=== PATIENT | female | born 1940 | race Caucasian/White ===

== ENCOUNTER 2017-09-21 21:26 | Inpatient (IN) ==
[2017-09-21] MEDS ORDERED: ASPIRIN 325 MG TABLET PO STA (21:40)
[2017-09-21] MEDS ORDERED: METOPROLOL TARTRATE 25 MG TABLET PO STA (21:40)
[2017-09-21] MEDS ORDERED: NITROGLYCERIN 2% OINT 1 INCH/GM PACK TOP STA (21:40)
[2017-09-21] MEDS ORDERED: ENOXAPARIN 100 MG/ML SYRINGE SUBCUT STA (21:40)
[2017-09-21] MEDS ORDERED: NITROGLYCERIN 2% OINT 1 INCH/GM PACK TOP ONE (22:03)
[2017-09-21] MEDS ORDERED: ENOXAPARIN 80 MG/0.8 ML SYRINGE SUBCUT ONE (22:03)
[2017-09-21] MEDS ORDERED: METOPROLOL TARTRATE 25 MG TABLET ONE (22:03)
[2017-09-21] MEDS ORDERED: ASPIRIN 325 MG TABLET ONE (22:04)
[2017-09-21] MEDS ORDERED: DEXTROSE 50% 25 GM/50 ML VIAL IV PRN (23:09)
[2017-09-21] MEDS ORDERED: ACETAMINOPHEN 325 MG TABLET PO PRN (23:09)
[2017-09-21] MEDS ORDERED: GLUCAGON 1 MG VIAL IM PRN (23:09)
[2017-09-22] MEDS ORDERED: METOPROLOL TARTRATE 25 MG TABLET PO ONE (00:40)
[2017-09-22 00:46] LABS: Basophils # 0.1 10*3/uL (0.0-0.2); Basophils % 0.4 % (0.0-0.8); Eosinophils # 0.2 10*3/uL (0.0-0.87); Eosinophils % 1.4 % (0.00-10.9); Hematocrit 37.3 VOL% (35.7-47.0); Hemoglobin 12.5 GM/DL (12.0-16.0); Immature Granulocytes % 0.5 %; Immature Granulocytes Absolute 0.06 #; Lymphocytes # 1.9 10*3/uL (1.4-4.0); Lymphocytes % 16.2 % (21.3-54.2); Mean Corpuscular HGB Conc 33.5 GM/DL (32-36); Mean Corpuscular Hemoglobin 29 PG (27-34); Mean Platelet Volume 10.4 FL (9.6-12.0); Monocytes # 0.8 10*3/uL (0.11-0.8); Monocytes % 6.5 % (1.7-12.7); Neutrophils # 8.9 10*3/uL (1.4-7.4); Platelet Count 323 T/CUMM (130-400); Red Blood Count 4.39 MC/CUMM (3.8-5.5); Red Cell Distribution Width 12.5 % (9.3-17.3); White Blood Count 11.9 T/CUMM (4-12)
[2017-09-22] MEDS: ATORVASTATIN 40 MG TABLET PO SCH ×2 (00:54→21:45)
[2017-09-22] MEDS: SODIUM CHLORIDE 0.9% 1,000 ML IV SCH ×2 (00:58→09:28)
[2017-09-22] MEDS: NITROGLYCERIN 2% OINT 1 INCH/GM PACK TOP SCH ×4 (01:04→17:37)
[2017-09-22 01:17] LABS: Alanine Aminotransferase 21 U/L (13-56); Albumin 3.6 G/DL (3.4-5.0); Alkaline Phosphatase 126 U/L (45-117); Aspartate Amino Transferase 26 U/L (0-37); Bilirubin,Total < 0.39 MG/DL (0.2-1.0); Blood Urea Nitrogen 17 MG/DL (7-18); Calcium 8.9 MG/DL (8.5-10.1); Cholesterol 189 MG/DL (50-200); Glucose 98 MG/DL (74-106); HDL Cholesterol 51 MG/DL (40-60); Magnesium 1.7 MG/DL (1.8-2.4); Osmolality,Calculated 278.5 MOS/KG (273-304); Potassium 4.2 MMOL/L (3.5-5.1); Risk Ratio 3.71; Sodium 139 MMOL/L (136-145); Total Protein 6.6 G/DL (6.4-8.3); Triglycerides 104 MG/DL (2-150); VLDL CHOLESTEROL 20.8 MG/DL
[2017-09-22] MEDS: INSULIN REGULAR 100 UNIT/ML SUBCUT SCH ×4 (07:31→21:42)
[2017-09-22] MEDS ORDERED: DIAZEPAM 5 MG TABLET PO ONE (08:41)
[2017-09-22] MEDS ORDERED: POTASSIUM CHLORIDE RIDER 10 MEQ in PREMIX 1 EACH IV PRN (08:41)
[2017-09-22] MEDS ORDERED: MAGNESIUM SULF RIDER 2 GM in PREMIX 1 EACH IV PRN (08:41)
[2017-09-22] MEDS ORDERED: diphenhydrAMINE CAP 25 MG CAPSULE PO ONE (08:41)
[2017-09-22] MEDS ORDERED: METOPROLOL TARTRATE 25 MG TABLET PO SCH (09:00)
[2017-09-22] MEDS ORDERED: ENOXAPARIN 80 MG/0.8 ML SYRINGE SUBCUT SCH (09:00)
[2017-09-22] MEDS: ASPIRIN EC 325 MG TABLET PO SCH (09:32)
[2017-09-22] MEDS: PANTOPRAZOLE 40 MG TABLET PO SCH (09:32)
[2017-09-22] MEDS: DOCUSATE SODIUM 100 MG CAPSULE PO SCH ×2 (09:32→21:45)
[2017-09-22] MEDS: METOPROLOL TARTRATE 50 MG TABLET PO SCH ×2 (09:32→21:45)
[2017-09-22 09:44] LABS: PT Patient Result 10.5 SECS
[2017-09-22 11:05] LABS: Apearance,Urine CLEAR (Clear); Bacteria,Urine Occasional /HPF (Few); Bilirubin,Urine Negative (Negative); Blood, Urine Small mg/dL (Negative); Glucose,Urine (UA) 50 mg/dL (Negative); Ketones,Urine Negative (Negative); Nitrite,Urine Negative (Negative); Protein,Urine Negative; RBC,Urine 2 /HPF (0-4); Squamous Epithelial Cell,Urine Occasional /HPF (0-10); Urine Color Straw (Yellow); Urine Specific Gravity 1.005 (1.001-1.035); Urine Urobilinogen < 2.0 EU/DL (0.2-1.0); WBC,Urine 12 /HPF (0-6)
[2017-09-22] MEDS ORDERED: LIDOCAINE 1% 20 ML VIAL ONE (14:09)
[2017-09-22] MEDS ORDERED: MIDAZOLAM 2 MG/2 ML VIAL ONE (14:40)
[2017-09-22] MEDS ORDERED: fentaNYL 100 MCG/2 ML VIAL ONE (14:41)
[2017-09-22] MEDS ORDERED: SODIUM CHLORIDE 0.9% 1,000 ML IV SCH (16:00)
[2017-09-23] MEDS: NITROGLYCERIN 2% OINT 1 INCH/GM PACK TOP SCH ×4 (03:27→17:41)
[2017-09-23 06:20] LABS: Basophils # 0.1 10*3/uL (0.0-0.2); Basophils % 0.7 % (0.0-0.8); Eosinophils # 0.6 10*3/uL (0.0-0.87); Eosinophils % 7.9 % (0.00-10.9); Hematocrit 36.1 VOL% (35.7-47.0); Hemoglobin 11.9 GM/DL (12.0-16.0); Immature Granulocytes % 0.2 %; Immature Granulocytes Absolute 0.02 #; Lymphocytes # 2.2 10*3/uL (1.4-4.0); Lymphocytes % 26.4 % (21.3-54.2); Mean Corpuscular Hemoglobin 28 PG (27-34); Mean Corpuscular Volume 85.7 FL (87-102); Mean Platelet Volume 11.4 FL (9.6-12.0); Monocytes # 0.9 10*3/uL (0.11-0.8); Monocytes % 10.7 % (1.7-12.7); Neutrophils # 4.4 10*3/uL (1.4-7.4); Neutrophils % 54.1 % (38.7-73.9); Platelet Count 288 T/CUMM (130-400); Red Blood Count 4.21 MC/CUMM (3.8-5.5); Red Cell Distribution Width 12.7 % (9.3-17.3); White Blood Count 8.2 T/CUMM (4-12)
[2017-09-23 07:05] LABS: CKMB % 2.2 %; Calcium 8.6 MG/DL (8.5-10.1); Osmolality,Calculated 277.5 MOS/KG (273-304); Troponin I Only 3.58 NG/ML (0.00-0.045)
[2017-09-23] MEDS ORDERED: DOCUSATE SODIUM 100 MG CAPSULE PO PRN (08:25)
[2017-09-23] MEDS ORDERED: INSULIN LISPRO PROTAMINE/LISPRO 75/25 100 UNIT/ML SUBCUT SCH (09:00)
[2017-09-23] MEDS: ONDANSETRON 4 MG/2 ML VIAL IV PRN (09:29)
[2017-09-23] MEDS: PANTOPRAZOLE 40 MG TABLET PO SCH ×2 (09:59→10:22)
[2017-09-23] MEDS: DOCUSATE SODIUM 100 MG CAPSULE PO SCH ×2 (10:21→20:53)
[2017-09-23] MEDS: METOPROLOL TARTRATE 50 MG TABLET PO SCH ×2 (10:21→20:53)
[2017-09-23] MEDS: ENALAPRIL 10 MG TABLET PO SCH ×2 (10:21→20:53)
[2017-09-23] MEDS: hydroCHLOROthiazide 25 MG TABLET PO SCH (10:21)
[2017-09-23] MEDS: LORATADINE 10 MG TABLET PO SCH (10:21)
[2017-09-23] MEDS: ENOXAPARIN 40 MG/0.4 ML SYRINGE SUBCUT SCH (10:22)
[2017-09-23] MEDS: busPIRone 15 MG TABLET PO SCH ×2 (10:22→20:53)
[2017-09-23] MEDS: ASPIRIN EC 325 MG TABLET PO SCH (10:22)
[2017-09-23] MEDS: INSULIN REGULAR 100 UNIT/ML SUBCUT SCH ×4 (10:40→20:53)
[2017-09-23] MEDS: FUROSEMIDE 20 MG TABLET PO SCH (10:41)
[2017-09-23] MEDS: POTASSIUM CHLORIDE 8 MEQ CAPSULE PO SCH (10:41)
[2017-09-23] MEDS ORDERED: SIMVASTATIN 20 MG TABLET PO SCH (19:00)
[2017-09-23] MEDS: AMITRIPTYLINE 25 MG TABLET PO SCH (20:53)
[2017-09-23] MEDS: ATORVASTATIN 40 MG TABLET PO SCH (20:53)
[2017-09-24] MEDS: NITROGLYCERIN 2% OINT 1 INCH/GM PACK TOP SCH ×4 (00:45→18:20)
[2017-09-24 04:54] LABS: Basophils # 0.1 10*3/uL (0.0-0.2); Basophils % 0.6 % (0.0-0.8); Eosinophils # 0.9 10*3/uL (0.0-0.87); Eosinophils % 10.2 % (0.00-10.9); Hematocrit 35.2 VOL% (35.7-47.0); Hemoglobin 11.7 GM/DL (12.0-16.0); Immature Granulocytes % 0.2 %; Immature Granulocytes Absolute 0.02 #; Lymphocytes # 2.3 10*3/uL (1.4-4.0); Mean Corpuscular HGB Conc 33.2 GM/DL (32-36); Mean Corpuscular Hemoglobin 28 PG (27-34); Mean Platelet Volume 10.6 FL (9.6-12.0); Neutrophils # 4.1 10*3/uL (1.4-7.4); Platelet Count 293 T/CUMM (130-400); Red Blood Count 4.14 MC/CUMM (3.8-5.5); Red Cell Distribution Width 12.7 % (9.3-17.3); White Blood Count 8.3 T/CUMM (4-12)
[2017-09-24 05:15] LABS: Calcium 8.8 MG/DL (8.5-10.1); Magnesium 1.8 MG/DL (1.8-2.4); Potassium 4.8 MMOL/L (3.5-5.1)
[2017-09-24] MEDS: METOPROLOL TARTRATE 50 MG TABLET PO SCH ×2 (10:53→21:44)
[2017-09-24] MEDS: hydroCHLOROthiazide 25 MG TABLET PO SCH (10:53)
[2017-09-24] MEDS: LORATADINE 10 MG TABLET PO SCH (10:53)
[2017-09-24] MEDS: ENALAPRIL 10 MG TABLET PO SCH ×2 (10:53→21:45)
[2017-09-24] MEDS: FUROSEMIDE 20 MG TABLET PO SCH (10:54)
[2017-09-24] MEDS: ASPIRIN EC 325 MG TABLET PO SCH (10:54)
[2017-09-24] MEDS: busPIRone 15 MG TABLET PO SCH ×2 (10:54→21:43)
[2017-09-24] MEDS: PANTOPRAZOLE 40 MG TABLET PO SCH (10:55)
[2017-09-24] MEDS: ENOXAPARIN 40 MG/0.4 ML SYRINGE SUBCUT SCH (10:55)
[2017-09-24] MEDS: INSULIN REGULAR 100 UNIT/ML SUBCUT SCH ×4 (10:56→21:43)
[2017-09-24] MEDS: POTASSIUM CHLORIDE 8 MEQ CAPSULE PO SCH (10:57)
[2017-09-24] MEDS: DOCUSATE SODIUM 100 MG CAPSULE PO SCH ×2 (10:57→21:44)
[2017-09-24] MEDS: ATORVASTATIN 40 MG TABLET PO SCH (21:44)
[2017-09-24] MEDS: AMITRIPTYLINE 25 MG TABLET PO SCH (21:45)
[2017-09-25] MEDS: NITROGLYCERIN 2% OINT 1 INCH/GM PACK TOP SCH ×4 (00:07→17:54)
[2017-09-25 02:24] LABS: Basophils # 0.1 10*3/uL (0.0-0.2); Basophils % 0.7 % (0.0-0.8); Eosinophils # 0.8 10*3/uL (0.0-0.87); Eosinophils % 9.6 % (0.00-10.9); Hematocrit 35.5 VOL% (35.7-47.0); Hemoglobin 12.1 GM/DL (12.0-16.0); Immature Granulocytes % 0.5 %; Immature Granulocytes Absolute 0.04 #; Lymphocytes # 2.5 10*3/uL (1.4-4.0); Lymphocytes % 28.6 % (21.3-54.2); Mean Corpuscular HGB Conc 34.1 GM/DL (32-36); Mean Corpuscular Hemoglobin 29 PG (27-34); Mean Corpuscular Volume 83.9 FL (87-102); Mean Platelet Volume 11.3 FL (9.6-12.0); Monocytes % 11.4 % (1.7-12.7); Neutrophils # 4.3 10*3/uL (1.4-7.4); Neutrophils % 49.2 % (38.7-73.9); Platelet Count 292 T/CUMM (130-400); Red Blood Count 4.23 MC/CUMM (3.8-5.5); Red Cell Distribution Width 12.5 % (9.3-17.3); White Blood Count 8.8 T/CUMM (4-12)
[2017-09-25 02:57] LABS: Calcium 9.1 MG/DL (8.5-10.1); Magnesium 1.8 MG/DL (1.8-2.4); Potassium 4.4 MMOL/L (3.5-5.1)
[2017-09-25] MEDS: ASPIRIN EC 325 MG TABLET PO SCH (09:25)
[2017-09-25] MEDS: LORATADINE 10 MG TABLET PO SCH (09:25)
[2017-09-25] MEDS: PANTOPRAZOLE 40 MG TABLET PO SCH (09:26)
[2017-09-25] MEDS: FUROSEMIDE 20 MG TABLET PO SCH (09:26)
[2017-09-25] MEDS: DOCUSATE SODIUM 100 MG CAPSULE PO SCH ×2 (09:26→21:19)
[2017-09-25] MEDS: METOPROLOL TARTRATE 50 MG TABLET PO SCH ×2 (09:26→21:19)
[2017-09-25] MEDS: busPIRone 15 MG TABLET PO SCH ×2 (09:27→21:19)
[2017-09-25] MEDS: ENALAPRIL 10 MG TABLET PO SCH ×2 (09:27→21:19)
[2017-09-25] MEDS: hydroCHLOROthiazide 25 MG TABLET PO SCH (09:27)
[2017-09-25] MEDS: ENOXAPARIN 40 MG/0.4 ML SYRINGE SUBCUT SCH (09:28)
[2017-09-25] MEDS: POTASSIUM CHLORIDE 8 MEQ CAPSULE PO SCH (09:31)
[2017-09-25] MEDS: INSULIN REGULAR 100 UNIT/ML SUBCUT SCH ×4 (13:21→21:20)
[2017-09-25] MEDS ORDERED: hydrALAZINE 20 MG/1 ML VIAL IV PRN (17:12)
[2017-09-25] MEDS: AMITRIPTYLINE 25 MG TABLET PO SCH (21:19)
[2017-09-25] MEDS: ATORVASTATIN 40 MG TABLET PO SCH (21:19)
[2017-09-26] MEDS: NITROGLYCERIN 2% OINT 1 INCH/GM PACK TOP SCH ×3 (00:04→13:02)
[2017-09-26 04:30] LABS: Basophils # 0.1 10*3/uL (0.0-0.2); Basophils % 0.6 % (0.0-0.8); Eosinophils # 0.9 10*3/uL (0.0-0.87); Eosinophils % 9.9 % (0.00-10.9); Hematocrit 35.9 VOL% (35.7-47.0); Hemoglobin 12.1 GM/DL (12.0-16.0); Immature Granulocytes % 0.3 %; Immature Granulocytes Absolute 0.03 #; Mean Corpuscular HGB Conc 33.7 GM/DL (32-36); Mean Corpuscular Hemoglobin 28 PG (27-34); Mean Corpuscular Volume 83.7 FL (87-102); Mean Platelet Volume 11.7 FL (9.6-12.0); Monocytes % 11.5 % (1.7-12.7); Neutrophils % 55.7 % (38.7-73.9); Platelet Count 277 T/CUMM (130-400); Red Blood Count 4.29 MC/CUMM (3.8-5.5); Red Cell Distribution Width 12.7 % (9.3-17.3); White Blood Count 8.9 T/CUMM (4-12)
[2017-09-26 05:02] LABS: Calcium 9.3 MG/DL (8.5-10.1); Magnesium 1.8 MG/DL (1.8-2.4); Potassium 4.7 MMOL/L (3.5-5.1)
[2017-09-26] MEDS: INSULIN REGULAR 100 UNIT/ML SUBCUT SCH ×4 (10:27→21:13)
[2017-09-26] MEDS: PANTOPRAZOLE 40 MG TABLET PO SCH (10:33)
[2017-09-26] MEDS: LORATADINE 10 MG TABLET PO SCH (10:33)
[2017-09-26] MEDS: ENALAPRIL 10 MG TABLET PO SCH ×2 (10:34→21:13)
[2017-09-26] MEDS: DOCUSATE SODIUM 100 MG CAPSULE PO SCH ×2 (10:34→21:12)
[2017-09-26] MEDS: ASPIRIN EC 325 MG TABLET PO SCH (10:34)
[2017-09-26] MEDS: hydroCHLOROthiazide 25 MG TABLET PO SCH (10:35)
[2017-09-26] MEDS: METOPROLOL TARTRATE 50 MG TABLET PO SCH ×2 (10:35→21:13)
[2017-09-26] MEDS: FUROSEMIDE 20 MG TABLET PO SCH (10:35)
[2017-09-26] MEDS: POTASSIUM CHLORIDE 8 MEQ CAPSULE PO SCH (10:35)
[2017-09-26] MEDS: busPIRone 15 MG TABLET PO SCH ×2 (10:36→21:13)
[2017-09-26] MEDS: ENOXAPARIN 40 MG/0.4 ML SYRINGE SUBCUT SCH (10:40)
[2017-09-26] MEDS: ATORVASTATIN 40 MG TABLET PO SCH (21:12)
[2017-09-26] MEDS: AMITRIPTYLINE 25 MG TABLET PO SCH (21:13)
[2017-09-27 01:36] LABS: Basophils # 0.1 10*3/uL (0.0-0.2); Basophils % 0.7 % (0.0-0.8); Eosinophils # 0.7 10*3/uL (0.0-0.87); Eosinophils % 8.5 % (0.00-10.9); Hematocrit 35.4 VOL% (35.7-47.0); Immature Granulocytes % 0.2 %; Immature Granulocytes Absolute 0.02 #; Lymphocytes # 2.1 10*3/uL (1.4-4.0); Lymphocytes % 24.4 % (21.3-54.2); Mean Corpuscular HGB Conc 33.9 GM/DL (32-36); Mean Corpuscular Hemoglobin 29 PG (27-34); Mean Corpuscular Volume 84.3 FL (87-102); Mean Platelet Volume 11.3 FL (9.6-12.0); Monocytes # 1.1 10*3/uL (0.11-0.8); Monocytes % 12.6 % (1.7-12.7); Neutrophils # 4.6 10*3/uL (1.4-7.4); Neutrophils % 53.6 % (38.7-73.9); Platelet Count 291 T/CUMM (130-400); Red Cell Distribution Width 12.7 % (9.3-17.3); White Blood Count 8.6 T/CUMM (4-12)
[2017-09-27 09:53] LABS: Calcium 9.2 MG/DL (8.5-10.1); Magnesium 1.8 MG/DL (1.8-2.4); Osmolality,Calculated 282.4 MOS/KG (273-304); Potassium 4.9 MMOL/L (3.5-5.1)
[2017-09-27] MEDS: INSULIN REGULAR 100 UNIT/ML SUBCUT SCH ×4 (10:15→21:33)
[2017-09-27] MEDS: ENOXAPARIN 40 MG/0.4 ML SYRINGE SUBCUT SCH (11:22)
[2017-09-27] MEDS: DOCUSATE SODIUM 100 MG CAPSULE PO SCH ×2 (11:22→21:33)
[2017-09-27] MEDS: LORATADINE 10 MG TABLET PO SCH (11:22)
[2017-09-27] MEDS: busPIRone 15 MG TABLET PO SCH ×2 (11:24→21:33)
[2017-09-27] MEDS: ASPIRIN EC 325 MG TABLET PO SCH (11:25)
[2017-09-27] MEDS: POTASSIUM CHLORIDE 8 MEQ CAPSULE PO SCH (11:25)
[2017-09-27] MEDS: hydroCHLOROthiazide 25 MG TABLET PO SCH (11:25)
[2017-09-27] MEDS: METOPROLOL TARTRATE 50 MG TABLET PO SCH ×2 (11:25→21:33)
[2017-09-27] MEDS: PANTOPRAZOLE 40 MG TABLET PO SCH (11:25)
[2017-09-27] MEDS: FUROSEMIDE 20 MG TABLET PO SCH (11:25)
[2017-09-27] MEDS: ENALAPRIL 10 MG TABLET PO SCH ×2 (11:25→21:33)
[2017-09-27] MEDS ORDERED: POTASSIUM CHLORIDE RIDER 10 MEQ in PREMIX 1 EACH IV PRN ×2 (13:53→18:53)
[2017-09-27] MEDS ORDERED: MAGNESIUM SULF RIDER 2 GM in PREMIX 1 EACH IV PRN ×2 (13:53→18:53)
[2017-09-27] MEDS: ATORVASTATIN 40 MG TABLET PO SCH (21:33)
[2017-09-27] MEDS: AMITRIPTYLINE 25 MG TABLET PO SCH (21:33)
[2017-09-28 04:51] LABS: Basophils # 0.1 10*3/uL (0.0-0.2); Basophils % 0.9 % (0.0-0.8); Eosinophils # 0.8 10*3/uL (0.0-0.87); Eosinophils % 9.4 % (0.00-10.9); Hematocrit 35.1 VOL% (35.7-47.0); Hemoglobin 12.1 GM/DL (12.0-16.0); Immature Granulocytes % 0.3 %; Immature Granulocytes Absolute 0.02 #; Lymphocytes # 2.1 10*3/uL (1.4-4.0); Lymphocytes % 26.3 % (21.3-54.2); Mean Corpuscular HGB Conc 34.5 GM/DL (32-36); Mean Corpuscular Hemoglobin 29 PG (27-34); Mean Corpuscular Volume 83.6 FL (87-102); Mean Platelet Volume 11.5 FL (9.6-12.0); Monocytes % 11.9 % (1.7-12.7); Neutrophils # 4.1 10*3/uL (1.4-7.4); Neutrophils % 51.2 % (38.7-73.9); Platelet Count 266 T/CUMM (130-400); Red Cell Distribution Width 12.7 % (9.3-17.3)
[2017-09-28] MEDS: SODIUM CHLORIDE 0.45% 1,000 ML IV SCH ×4 (05:01→23:58)
[2017-09-28 05:22] LABS: Calcium 9.2 MG/DL (8.5-10.1); Magnesium 1.7 MG/DL (1.8-2.4); Osmolality,Calculated 278.5 MOS/KG (273-304); Potassium 4.6 MMOL/L (3.5-5.1)
[2017-09-28] MEDS ORDERED: SODIUM CHLORIDE 0.45% 1,000 ML IV SCH (09:00)
[2017-09-28] MEDS: ENALAPRIL 10 MG TABLET PO SCH ×2 (09:09→22:34)
[2017-09-28] MEDS: busPIRone 15 MG TABLET PO SCH ×2 (09:10→22:27)
[2017-09-28] MEDS: POTASSIUM CHLORIDE 8 MEQ CAPSULE PO SCH (09:10)
[2017-09-28] MEDS: ASPIRIN EC 325 MG TABLET PO SCH (09:11)
[2017-09-28] MEDS: LORATADINE 10 MG TABLET PO SCH (09:11)
[2017-09-28] MEDS: METOPROLOL TARTRATE 50 MG TABLET PO SCH ×2 (09:11→22:27)
[2017-09-28] MEDS: PANTOPRAZOLE 40 MG TABLET PO SCH (09:12)
[2017-09-28] MEDS: ENOXAPARIN 40 MG/0.4 ML SYRINGE SUBCUT SCH (09:13)
[2017-09-28] MEDS: DOCUSATE SODIUM 100 MG CAPSULE PO SCH ×2 (09:13→22:28)
[2017-09-28] MEDS: INSULIN REGULAR 100 UNIT/ML SUBCUT SCH ×4 (09:14→22:27)
[2017-09-28] MEDS ORDERED: DIAZEPAM 5 MG TABLET PO ONE (10:00)
[2017-09-28] MEDS ORDERED: diphenhydrAMINE CAP 25 MG CAPSULE PO ONE (10:00)
[2017-09-28] MEDS ORDERED: HYDROmorphone 2 MG/1 ML VIAL ONE (10:50)
[2017-09-28] MEDS ORDERED: MIDAZOLAM 2 MG/2 ML VIAL ONE (10:50)
[2017-09-28] MEDS ORDERED: HEPARIN/NACL 0.9% 2 UNITS/ML 1,000 ML IV ONE (11:48)
[2017-09-28] MEDS ORDERED: LIDOCAINE 1% 20 ML VIAL ONE (11:48)
[2017-09-28] MEDS ORDERED: HEPARIN/NACL 0.9% 2 UNITS/ML 500 ML IV ONE (12:15)
[2017-09-28] MEDS ORDERED: TICAGRELOR 90 MG TABLET ONE (12:34)
[2017-09-28] MEDS ORDERED: NITROGLYCERIN SL 0.4 MG TABLET SL PRN (13:01)
[2017-09-28] MEDS ORDERED: DEXTROSE 50% 25 GM/50 ML VIAL IV PRN (13:01)
[2017-09-28] MEDS ORDERED: ZALEPLON 5 MG CAPSULE PO PRN (13:01)
[2017-09-28] MEDS ORDERED: GLUCAGON 1 MG VIAL IM PRN (13:01)
[2017-09-28] MEDS ORDERED: HYDROmorphone 2 MG/1 ML VIAL IV ONE (14:14)
[2017-09-28] MEDS: hydroCHLOROthiazide 25 MG TABLET PO SCH (14:18)
[2017-09-28] MEDS: FUROSEMIDE 20 MG TABLET PO SCH (14:18)
[2017-09-28] MEDS: NITROGLYCERIN DRIP 50 MG/250 ML BOTTLE IV SCH (14:19)
[2017-09-28 18:49] LABS: Apearance,Urine CLEAR (Clear); Bilirubin,Urine Negative (Negative); Blood, Urine Negative (Negative); Glucose,Urine (UA) Negative (Negative); Ketones,Urine Negative (Negative); Nitrite,Urine Negative (Negative); Protein,Urine Negative; RBC,Urine <1 /HPF (0-4); Squamous Epithelial Cell,Urine Occasional /HPF (0-10); Urine Color Yellow (Yellow); Urine Specific Gravity > 1.060 (1.001-1.035); Urine Urobilinogen < 2.0 EU/DL (0.2-1.0)
[2017-09-28] MEDS: ONDANSETRON 4 MG/2 ML VIAL IV PRN (21:29)
[2017-09-28] MEDS: AMITRIPTYLINE 25 MG TABLET PO SCH (22:28)
[2017-09-28] MEDS: ATORVASTATIN 40 MG TABLET PO SCH (22:28)
[2017-09-28] MEDS: TICAGRELOR 90 MG TABLET PO SCH (22:28)
[2017-09-28] MEDS: MORPHINE 2 MG/1 ML SYRINGE IV PRN (22:42)
[2017-09-29] MEDS: ONDANSETRON 4 MG/2 ML VIAL IV PRN ×2 (02:58→09:07)
[2017-09-29] MEDS: MORPHINE 2 MG/1 ML SYRINGE IV PRN (04:17)
[2017-09-29 06:37] LABS: Basophils # 0.1 10*3/uL (0.0-0.2); Basophils % 0.4 % (0.0-0.8); Eosinophils # 0.2 10*3/uL (0.0-0.87); Eosinophils % 1.8 % (0.00-10.9); Hematocrit 36.8 VOL% (35.7-47.0); Hemoglobin 12.7 GM/DL (12.0-16.0); Immature Granulocytes % 0.4 %; Immature Granulocytes Absolute 0.05 #; Lymphocytes # 1.1 10*3/uL (1.4-4.0); Lymphocytes % 8.2 % (21.3-54.2); Mean Corpuscular HGB Conc 34.5 GM/DL (32-36); Mean Corpuscular Hemoglobin 29 PG (27-34); Mean Corpuscular Volume 83.6 FL (87-102); Monocytes % 7.9 % (1.7-12.7); Neutrophils # 10.7 10*3/uL (1.4-7.4); Neutrophils % 81.3 % (38.7-73.9); Platelet Count 297 T/CUMM (130-400); Red Cell Distribution Width 12.5 % (9.3-17.3); White Blood Count 13.2 T/CUMM (4-12)
[2017-09-29] MEDS: SODIUM CHLORIDE 0.45% 1,000 ML IV SCH (07:00)
[2017-09-29 07:01] LABS: CKMB % 8.1 %; Calcium 9.2 MG/DL (8.5-10.1); Magnesium 1.8 MG/DL (1.8-2.4); Osmolality,Calculated 269.2 MOS/KG (273-304); Potassium 5.1 MMOL/L (3.5-5.1)
[2017-09-29 07:04] LABS: Troponin I Only 26.4 NG/ML (0.00-0.045)
[2017-09-29] MEDS: ENOXAPARIN 40 MG/0.4 ML SYRINGE SUBCUT SCH (09:07)
[2017-09-29] MEDS: INSULIN REGULAR 100 UNIT/ML SUBCUT SCH ×4 (09:07→22:16)
[2017-09-29] MEDS: ASPIRIN EC 81 MG TABLET PO SCH (09:08)
[2017-09-29] MEDS: ENALAPRIL 10 MG TABLET PO SCH ×2 (09:08→22:14)
[2017-09-29] MEDS: LORATADINE 10 MG TABLET PO SCH (09:08)
[2017-09-29] MEDS: busPIRone 15 MG TABLET PO SCH ×2 (09:08→22:16)
[2017-09-29] MEDS: TICAGRELOR 90 MG TABLET PO SCH ×2 (09:08→22:15)
[2017-09-29] MEDS: POTASSIUM CHLORIDE 8 MEQ CAPSULE PO SCH (09:09)
[2017-09-29] MEDS: PANTOPRAZOLE 40 MG TABLET PO SCH (09:09)
[2017-09-29] MEDS: METOPROLOL TARTRATE 50 MG TABLET PO SCH ×2 (09:09→22:15)
[2017-09-29] MEDS: DOCUSATE SODIUM 100 MG CAPSULE PO SCH ×2 (09:09→22:15)
[2017-09-29] MEDS ORDERED: ALUMINUM/MAGNES/SIMETH MAX STR 30 ML UDCUP PO PRN (09:14)
[2017-09-29] MEDS: PROMETHAZINE 25 MG/1 ML VIAL IM PRN ×2 (12:01→17:59)
[2017-09-29 12:07] LABS: Albumin 3.6 G/DL (3.4-5.0); Bilirubin,Direct 0.14 MG/DL (0.0-0.20); Bilirubin,Indirect 0.8 MG/DL (0.0-1.0); Bilirubin,Total 0.9 MG/DL (0.2-1.0); Total Protein 6.9 G/DL (6.4-8.3)
[2017-09-29] MEDS: NITROGLYCERIN DRIP 50 MG/250 ML BOTTLE IV SCH (14:02)
[2017-09-29 15:45] LABS: CKMB % 8.6 %
[2017-09-29 15:47] LABS: Troponin I Only 24.2 NG/ML (0.00-0.045)
[2017-09-29 19:18] LABS: CKMB % 6.7 %
[2017-09-29 19:24] LABS: Troponin I Only 25.1 NG/ML (0.00-0.045)
[2017-09-29] MEDS: ATORVASTATIN 40 MG TABLET PO SCH (22:15)
[2017-09-29] MEDS: AMITRIPTYLINE 25 MG TABLET PO SCH (22:15)
[2017-09-29] MEDS: ISOSORBIDE MONONITRATE 30 MG TABLET PO SCH ×2 (22:15→22:17)
[2017-09-29 22:20] LABS: CKMB % 5.7 %
[2017-09-29 22:31] LABS: Troponin I Only 32.5 NG/ML (0.00-0.045)
[2017-09-30 04:55] LABS: Calcium 9.1 MG/DL (8.5-10.1); Magnesium 1.7 MG/DL (1.8-2.4); Osmolality,Calculated 266.9 MOS/KG (273-304); Potassium 4.7 MMOL/L (3.5-5.1)
[2017-09-30 05:01] LABS: Basophils % 0.3 % (0.0-0.8); Eosinophils % 0.3 % (0.00-10.9); Hematocrit 36.3 VOL% (35.7-47.0); Hemoglobin 13.1 GM/DL (12.0-16.0); Immature Granulocytes % 0.5 %; Immature Granulocytes Absolute 0.08 #; Lymphocytes % 6.7 % (21.3-54.2); Mean Corpuscular HGB Conc 36.1 GM/DL (32-36); Mean Corpuscular Hemoglobin 29 PG (27-34); Mean Corpuscular Volume 81.6 FL (87-102); Mean Platelet Volume 11.5 FL (9.6-12.0); Monocytes # 1.9 10*3/uL (0.11-0.8); Monocytes % 11.9 % (1.7-12.7); Neutrophils # 12.6 10*3/uL (1.4-7.4); Neutrophils % 80.3 % (38.7-73.9); Platelet Count 265 T/CUMM (130-400); Red Blood Count 4.45 MC/CUMM (3.8-5.5); Red Cell Distribution Width 12.7 % (9.3-17.3); White Blood Count 15.6 T/CUMM (4-12)
[2017-09-30] MEDS: NITROGLYCERIN DRIP 50 MG/250 ML BOTTLE IV SCH (07:24)
[2017-09-30] MEDS: INSULIN REGULAR 100 UNIT/ML SUBCUT SCH ×4 (08:28→21:51)
[2017-09-30] MEDS: ENOXAPARIN 40 MG/0.4 ML SYRINGE SUBCUT SCH (08:29)
[2017-09-30] MEDS: ISOSORBIDE MONONITRATE 30 MG TABLET PO SCH (08:30)
[2017-09-30] MEDS: PANTOPRAZOLE 40 MG TABLET PO SCH (08:30)
[2017-09-30] MEDS: busPIRone 15 MG TABLET PO SCH ×2 (08:30→21:51)
[2017-09-30] MEDS: METOPROLOL TARTRATE 50 MG TABLET PO SCH ×2 (08:30→21:50)
[2017-09-30] MEDS: ASPIRIN EC 81 MG TABLET PO SCH (08:30)
[2017-09-30] MEDS: LORATADINE 10 MG TABLET PO SCH (08:31)
[2017-09-30] MEDS: DOCUSATE SODIUM 100 MG CAPSULE PO SCH ×2 (08:31→21:50)
[2017-09-30] MEDS: POTASSIUM CHLORIDE 8 MEQ CAPSULE PO SCH (08:31)
[2017-09-30] MEDS: ENALAPRIL 10 MG TABLET PO SCH ×2 (08:31→21:50)
[2017-09-30] MEDS: TICAGRELOR 90 MG TABLET PO SCH ×2 (08:32→21:50)
[2017-09-30] MEDS: AMITRIPTYLINE 25 MG TABLET PO SCH (21:50)
[2017-09-30] MEDS: ATORVASTATIN 40 MG TABLET PO SCH (21:50)
[2017-10-01 04:57] LABS: Basophils % 0.3 % (0.0-0.8); Eosinophils % 0.3 % (0.00-10.9); Hemoglobin 11.6 GM/DL (12.0-16.0); Immature Granulocytes % 0.4 %; Immature Granulocytes Absolute 0.05 #; Lymphocytes # 1.4 10*3/uL (1.4-4.0); Lymphocytes % 11.7 % (21.3-54.2); Mean Corpuscular HGB Conc 35.2 GM/DL (32-36); Mean Corpuscular Hemoglobin 29 PG (27-34); Mean Corpuscular Volume 82.7 FL (87-102); Mean Platelet Volume 11.7 FL (9.6-12.0); Monocytes # 1.9 10*3/uL (0.11-0.8); Monocytes % 15.3 % (1.7-12.7); Neutrophils # 8.8 10*3/uL (1.4-7.4); Platelet Count 275 T/CUMM (130-400); Red Blood Count 3.99 MC/CUMM (3.8-5.5); Red Cell Distribution Width 12.8 % (9.3-17.3); White Blood Count 12.2 T/CUMM (4-12)
[2017-10-01 05:26] LABS: Calcium 9.3 MG/DL (8.5-10.1); Osmolality,Calculated 272.8 MOS/KG (273-304); Potassium 4.3 MMOL/L (3.5-5.1)
[2017-10-01] MEDS: ASPIRIN EC 81 MG TABLET PO SCH (08:40)
[2017-10-01] MEDS: TICAGRELOR 90 MG TABLET PO SCH ×2 (08:40→20:10)
[2017-10-01] MEDS: busPIRone 15 MG TABLET PO SCH ×2 (08:41→20:10)
[2017-10-01] MEDS: ISOSORBIDE MONONITRATE 30 MG TABLET PO SCH (08:43)
[2017-10-01] MEDS: METOPROLOL TARTRATE 50 MG TABLET PO SCH ×2 (08:43→20:10)
[2017-10-01] MEDS: DOCUSATE SODIUM 100 MG CAPSULE PO SCH ×2 (08:43→20:10)
[2017-10-01] MEDS: LORATADINE 10 MG TABLET PO SCH (08:43)
[2017-10-01] MEDS: POTASSIUM CHLORIDE 8 MEQ CAPSULE PO SCH (08:44)
[2017-10-01] MEDS: ENOXAPARIN 40 MG/0.4 ML SYRINGE SUBCUT SCH (08:44)
[2017-10-01] MEDS: ENALAPRIL 10 MG TABLET PO SCH ×2 (08:44→20:10)
[2017-10-01] MEDS: PANTOPRAZOLE 40 MG TABLET PO SCH (08:44)
[2017-10-01] MEDS: INSULIN REGULAR 100 UNIT/ML SUBCUT SCH ×4 (08:45→20:10)
[2017-10-01] MEDS: AMITRIPTYLINE 25 MG TABLET PO SCH (20:10)
[2017-10-01] MEDS: ATORVASTATIN 40 MG TABLET PO SCH (20:10)
[2017-10-02 06:00] LABS: Magnesium 2.1 MG/DL (1.8-2.4); Osmolality,Calculated 275.9 MOS/KG (273-304); Potassium 4.2 MMOL/L (3.5-5.1)
[2017-10-02 08:16] LABS: Basophils # 0.1 10*3/uL (0.0-0.2); Basophils % 0.5 % (0.0-0.8); Eosinophils # 0.1 10*3/uL (0.0-0.87); Eosinophils % 0.7 % (0.00-10.9); Hematocrit 31.5 VOL% (35.7-47.0); Hemoglobin 10.9 GM/DL (12.0-16.0); Immature Granulocytes % 0.6 %; Immature Granulocytes Absolute 0.06 #; Lymphocytes # 1.4 10*3/uL (1.4-4.0); Lymphocytes % 13.6 % (21.3-54.2); Mean Corpuscular HGB Conc 34.6 GM/DL (32-36); Mean Corpuscular Hemoglobin 29 PG (27-34); Mean Corpuscular Volume 83.6 FL (87-102); Monocytes # 1.4 10*3/uL (0.11-0.8); Monocytes % 13.2 % (1.7-12.7); Neutrophils # 7.5 10*3/uL (1.4-7.4); Neutrophils % 71.4 % (38.7-73.9); Platelet Count 253 T/CUMM (130-400); Red Blood Count 3.77 MC/CUMM (3.8-5.5); Red Cell Distribution Width 12.8 % (9.3-17.3); White Blood Count 10.6 T/CUMM (4-12)
[2017-10-02] MEDS: POTASSIUM CHLORIDE 8 MEQ CAPSULE PO SCH (09:28)
[2017-10-02] MEDS: busPIRone 15 MG TABLET PO SCH (09:28)
[2017-10-02] MEDS: LORATADINE 10 MG TABLET PO SCH (09:28)
[2017-10-02] MEDS: TICAGRELOR 90 MG TABLET PO SCH (09:28)
[2017-10-02] MEDS: PANTOPRAZOLE 40 MG TABLET PO SCH (09:28)
[2017-10-02] MEDS: METOPROLOL TARTRATE 50 MG TABLET PO SCH (09:28)
[2017-10-02] MEDS: ENALAPRIL 10 MG TABLET PO SCH (09:28)
[2017-10-02] MEDS: ISOSORBIDE MONONITRATE 30 MG TABLET PO SCH (09:28)
[2017-10-02] MEDS: ASPIRIN EC 81 MG TABLET PO SCH (09:29)
[2017-10-02] MEDS: INSULIN REGULAR 100 UNIT/ML SUBCUT SCH ×2 (09:29→12:16)
[2017-10-02] MEDS: DOCUSATE SODIUM 100 MG CAPSULE PO SCH (09:29)
[2017-10-02] MEDS: ENOXAPARIN 40 MG/0.4 ML SYRINGE SUBCUT SCH (09:30)
[2017-10-02] MEDS ORDERED: SPIRONOLACTONE 25 MG TABLET PO SCH (11:30)
[2017-10-02 12:00] VITALS: BP 108/54
== END 2017-10-02 15:35 | disposition home or self-care (01) | DRG 247 ==
LOC: EDUNIT# → EDBD → N.ED 21:26 → N.EDINP 21:51 → N.TELES 22:38 → N.CC 09-28 14:01 → N.TELEN 10-01 11:42
PROVIDERS: ADMIT Internal Medicine; ATTEND Internal Medicine

== ENCOUNTER 2017-10-08 17:50 | Inpatient (IN) ==
[2017-10-08 19:40] LABS: Troponin I Only 2.88 NG/ML (0.00-0.045)
[2017-10-08 20:00] LABS: Albumin 3.2 G/DL (3.4-5.0); Bilirubin,Total 0.4 MG/DL (0.2-1.0); Calcium 9.3 MG/DL (8.5-10.1); Osmolality,Calculated 267.8 MOS/KG (273-304); Potassium 5.3 MMOL/L (3.5-5.1); Total Protein 7.9 G/DL (6.4-8.3)
[2017-10-08] MEDS ORDERED: FUROSEMIDE 100 MG/10 ML VIAL IV STA (22:44)
[2017-10-08] MEDS ORDERED: DEXTROSE 50% 25 GM/50 ML VIAL IV PRN (22:44)
[2017-10-08] MEDS ORDERED: MAGNESIUM SULF RIDER 2 GM in PREMIX 1 EACH IV ONE (22:44)
[2017-10-08] MEDS ORDERED: MAGNESIUM SULF RIDER 4 GM in PREMIX 1 EACH IV PRN (22:44)
[2017-10-08] MEDS ORDERED: GLUCAGON 1 MG VIAL IM PRN (22:44)
[2017-10-08] MEDS ORDERED: ENOXAPARIN 80 MG/0.8 ML SYRINGE SUBCUT STA (22:44)
[2017-10-08] MEDS ORDERED: MAGNESIUM SULF RIDER 2 GM in PREMIX 1 EACH IV PRN (22:44)
[2017-10-08] MEDS: TICAGRELOR 90 MG TABLET PO SCH (23:41)
[2017-10-08] MEDS: ATORVASTATIN 40 MG TABLET PO SCH (23:41)
[2017-10-08] MEDS: CARVEDILOL 3.125 MG TABLET PO SCH (23:41)
[2017-10-08] MEDS: AMITRIPTYLINE 25 MG TABLET PO SCH (23:41)
[2017-10-08 23:46] LABS: Basophils # 0.1 10*3/uL (0.0-0.2); Basophils % 0.5 % (0.0-0.8); Eosinophils # 0.1 10*3/uL (0.0-0.87); Eosinophils % 0.5 % (0.00-10.9); Hematocrit 31.4 VOL% (35.7-47.0); Hemoglobin 10.8 GM/DL (12.0-16.0); Immature Granulocytes % 0.6 %; Immature Granulocytes Absolute 0.09 #; Lymphocytes # 1.3 10*3/uL (1.4-4.0); Lymphocytes % 8.8 % (21.3-54.2); Mean Corpuscular HGB Conc 34.4 GM/DL (32-36); Mean Corpuscular Hemoglobin 29 PG (27-34); Mean Platelet Volume 10.8 FL (9.6-12.0); Monocytes # 1.8 10*3/uL (0.11-0.8); Monocytes % 11.9 % (1.7-12.7); Neutrophils # 11.7 10*3/uL (1.4-7.4); Neutrophils % 77.7 % (38.7-73.9); Platelet Count 429 T/CUMM (130-400); Red Blood Count 3.74 MC/CUMM (3.8-5.5); White Blood Count 15.1 T/CUMM (4-12)
[2017-10-09] MEDS: TICAGRELOR 90 MG TABLET PO SCH ×2 (09:39→21:16)
[2017-10-09] MEDS: FUROSEMIDE 20 MG/2 ML VIAL IV SCH ×2 (09:39→16:45)
[2017-10-09] MEDS: INSULIN REGULAR 100 UNIT/ML SUBCUT SCH ×4 (09:39→21:50)
[2017-10-09] MEDS: ENOXAPARIN 40 MG/0.4 ML SYRINGE SUBCUT SCH (09:39)
[2017-10-09] MEDS: CARVEDILOL 3.125 MG TABLET PO SCH ×2 (09:39→21:16)
[2017-10-09] MEDS: ASPIRIN EC 81 MG TABLET PO SCH (09:39)
[2017-10-09] MEDS: ENALAPRIL 10 MG TABLET PO SCH (09:40)
[2017-10-09] MEDS: ATORVASTATIN 40 MG TABLET PO SCH (21:16)
[2017-10-09] MEDS: AMITRIPTYLINE 25 MG TABLET PO SCH (21:16)
[2017-10-09] MEDS ORDERED: ZINC OXIDE PASTE 113 GM TUBE TOP PRN (23:50)
[2017-10-10] MEDS: ENALAPRIL 10 MG TABLET PO SCH ×3 (00:10→22:17)
[2017-10-10 06:11] LABS: Calcium 8.8 MG/DL (8.5-10.1); Magnesium 1.8 MG/DL (1.8-2.4); Osmolality,Calculated 272.9 MOS/KG (273-304); Potassium 4.8 MMOL/L (3.5-5.1)
[2017-10-10] MEDS: FUROSEMIDE 20 MG/2 ML VIAL IV SCH ×2 (09:24→16:33)
[2017-10-10] MEDS: ASPIRIN EC 81 MG TABLET PO SCH (09:44)
[2017-10-10] MEDS: ENOXAPARIN 40 MG/0.4 ML SYRINGE SUBCUT SCH (09:44)
[2017-10-10] MEDS: INSULIN REGULAR 100 UNIT/ML SUBCUT SCH ×4 (09:44→22:32)
[2017-10-10] MEDS: TICAGRELOR 90 MG TABLET PO SCH ×2 (09:45→22:17)
[2017-10-10] MEDS: CARVEDILOL 3.125 MG TABLET PO SCH ×2 (09:45→22:17)
[2017-10-10] MEDS ORDERED: diphenhydrAMINE CAP 25 MG CAPSULE PO PRN (09:53)
[2017-10-10] MEDS ORDERED: ACETAMINOPHEN 325 MG TABLET PO PRN (09:53)
[2017-10-10] MEDS ORDERED: guaiFENesin/DM ER 600-30 MG TABLET PO PRN (09:53)
[2017-10-10] MEDS ORDERED: BISACODYL 5 MG TABLET PO PRN (09:53)
[2017-10-10] MEDS ORDERED: ZALEPLON 5 MG CAPSULE PO PRN (09:53)
[2017-10-10] MEDS ORDERED: ONDANSETRON 4 MG/2 ML VIAL IV PRN (09:53)
[2017-10-10] MEDS ORDERED: GLUCAGON 1 MG VIAL IM PRN (11:48)
[2017-10-10] MEDS ORDERED: DEXTROSE 50% 25 GM/50 ML VIAL IV PRN (11:48)
[2017-10-10] MEDS: INSULIN LISPRO 100 UNIT/ML SUBCUT SCH ×2 (12:31→17:10)
[2017-10-10] MEDS: SPIRONOLACTONE 25 MG TABLET PO SCH (17:10)
[2017-10-10] MEDS ORDERED: INSULIN DEGLUDEC 50 UNIT SUBCUT SCH (21:00)
[2017-10-10] MEDS: busPIRone 15 MG TABLET PO SCH (22:16)
[2017-10-10] MEDS: ATORVASTATIN 40 MG TABLET PO SCH (22:17)
[2017-10-10] MEDS: AMITRIPTYLINE 25 MG TABLET PO SCH (22:17)
[2017-10-11 05:47] LABS: Basophils # 0.1 10*3/uL (0.0-0.2); Basophils % 0.7 % (0.0-0.8); Eosinophils # 0.5 10*3/uL (0.0-0.87); Eosinophils % 5.4 % (0.00-10.9); Hematocrit 31.4 VOL% (35.7-47.0); Hemoglobin 10.6 GM/DL (12.0-16.0); Immature Granulocytes % 0.5 %; Immature Granulocytes Absolute 0.04 #; Lymphocytes # 1.7 10*3/uL (1.4-4.0); Mean Corpuscular HGB Conc 33.8 GM/DL (32-36); Mean Corpuscular Hemoglobin 28 PG (27-34); Mean Corpuscular Volume 84.2 FL (87-102); Mean Platelet Volume 10.7 FL (9.6-12.0); Monocytes # 1.2 10*3/uL (0.11-0.8); Monocytes % 13.6 % (1.7-12.7); Neutrophils # 5.1 10*3/uL (1.4-7.4); Neutrophils % 59.8 % (38.7-73.9); Platelet Count 373 T/CUMM (130-400); Red Blood Count 3.73 MC/CUMM (3.8-5.5); White Blood Count 8.5 T/CUMM (4-12)
[2017-10-11 06:25] LABS: Calcium 8.7 MG/DL (8.5-10.1); Magnesium 1.8 MG/DL (1.8-2.4); Osmolality,Calculated 276.5 MOS/KG (273-304); Potassium 4.7 MMOL/L (3.5-5.1)
[2017-10-11] MEDS: INSULIN REGULAR 100 UNIT/ML SUBCUT SCH (08:25)
[2017-10-11] MEDS ORDERED: DOCUSATE SODIUM 100 MG CAPSULE PO SCH (09:00)
[2017-10-11] MEDS ORDERED: PANTOPRAZOLE 40 MG TABLET PO SCH (09:00)
[2017-10-11] MEDS ORDERED: LORATADINE 10 MG TABLET PO SCH (09:00)
[2017-10-11] MEDS: FUROSEMIDE 20 MG/2 ML VIAL IV SCH (09:03)
[2017-10-11] MEDS: INSULIN LISPRO 100 UNIT/ML SUBCUT SCH ×2 (10:27→12:41)
[2017-10-11] MEDS: ENOXAPARIN 40 MG/0.4 ML SYRINGE SUBCUT SCH (10:28)
[2017-10-11] MEDS: TICAGRELOR 90 MG TABLET PO SCH (10:28)
[2017-10-11] MEDS: busPIRone 15 MG TABLET PO SCH (10:28)
[2017-10-11] MEDS: CARVEDILOL 3.125 MG TABLET PO SCH (10:29)
[2017-10-11] MEDS: ASPIRIN EC 81 MG TABLET PO SCH (10:29)
[2017-10-11] MEDS: ENALAPRIL 10 MG TABLET PO SCH (10:35)
[2017-10-11] MEDS: SPIRONOLACTONE 25 MG TABLET PO SCH (10:39)
[2017-10-11 12:32] VITALS: BP 148/70
== END 2017-10-11 14:45 | disposition swing bed (61) | DRG 281 ==
LOC: N.ED 17:50 → N.EDINP 19:34 → N.TELES 20:08
PROVIDERS: ADMIT Internal Medicine Cardiovascular Disease; ATTEND Internal Medicine Cardiovascular Disease

== ENCOUNTER 2020-05-14 00:19 | Observation (INO) ==
[2020-05-14 01:01] LABS: Basophils # 0.1 10*3/uL (0.0-0.2); Basophils % 0.7 % (0.0-0.8); Eosinophils # 0.5 10*3/uL (0.0-0.87); Eosinophils % 5.7 % (0.00-10.9); Hematocrit 34.3 VOL% (35.7-47.0); Hemoglobin 10.9 GM/DL (12.0-16.0); Immature Granulocytes % 0.3 %; Immature Granulocytes Absolute 0.03 #; Lymphocytes # 1.7 10*3/uL (1.4-4.0); Mean Corpuscular HGB Conc 31.8 GM/DL (32-36); Mean Corpuscular Volume 88.9 FL (87-102); Mean Platelet Volume 10.9 FL (9.6-12.0); Monocytes % 9.4 % (1.7-12.7); Neutrophils % 64.9 % (38.7-73.9); Platelet Count 232 T/CUMM (130-400); Red Blood Count 3.86 MC/CUMM (3.8-5.5); Red Cell Distribution Width 13.6 % (9.3-17.3); White Blood Count 8.8 T/CUMM (4-12)
[2020-05-14 01:12] LABS: PT Patient Result 10.3 SECS (9.8-11.9); Partial Thromboplastin Time 24.6 SECS (23.9-33.8)
[2020-05-14 01:21] LABS: Alanine Aminotransferase 23 U/L (13-56); Albumin 3.5 G/DL (3.4-5.0); Alkaline Phosphatase 187 U/L (45-117); Amylase 16 U/L (25-115); Aspartate Amino Transferase 14 U/L (0-37); Bilirubin,Total < 0.39 MG/DL (0.2-1.0); Blood Urea Nitrogen 25 MG/DL (7-18); Calcium 8.5 MG/DL (8.5-10.1); Estimated Glom Filtration Rate 25 ML/MIN; Glucose 424 MG/DL (74-106); Osmolality,Calculated 291.1 MOS/KG (273-304); Total Protein 7.1 G/DL (6.4-8.3); Troponin I < 0.015 NG/ML (0.00-0.045)
[2020-05-14 01:30] LABS: Thyroid Stimulating Hormone 0.066 uIU/ml (0.358-3.74)
[2020-05-14] MEDS ORDERED: SODIUM CHLORIDE 0.9% 500 ML IV STA (01:48)
[2020-05-14] MEDS ORDERED: INSULIN REGULAR 100 UNIT/ML IV STA (01:48)
[2020-05-14] MEDS ORDERED: GLUCAGON 1 MG VIAL IM PRN ×2 (03:16→08:24)
[2020-05-14] MEDS ORDERED: ONDANSETRON 4 MG/2 ML VIAL IV PRN (03:16)
[2020-05-14] MEDS ORDERED: MORPHINE 4 MG/1 ML VIAL IV PRN (03:16)
[2020-05-14] MEDS ORDERED: ACETAMINOPHEN 325 MG TABLET PO PRN (03:16)
[2020-05-14] MEDS ORDERED: DEXTROSE 50% 25 GM/50 ML VIAL IV PRN (03:16)
[2020-05-14] MEDS: SODIUM CHLORIDE 0.45% 1,000 ML IV SCH ×4 (04:40→20:50)
[2020-05-14 04:45] LABS: Troponin I 0.032 NG/ML (0.00-0.045)
[2020-05-14] MEDS ORDERED: INSULIN REGULAR 100 UNIT/ML SUBCUT SCH (06:00)
[2020-05-14] MEDS: DOCUSATE SODIUM 100 MG CAPSULE PO SCH ×2 (08:15→20:58)
[2020-05-14] MEDS ORDERED: DEXTROSE 10% 250 ML BAG IV PRN (08:24)
[2020-05-14] MEDS ORDERED: PANTOPRAZOLE 40 MG TABLET PO SCH (09:00)
[2020-05-14] MEDS: PANTOPRAZOLE 40 MG TABLET PO SCH (10:05)
[2020-05-14] MEDS: ASPIRIN EC 81 MG TABLET PO SCH (10:43)
[2020-05-14] MEDS: LORATADINE 10 MG TABLET PO SCH (10:43)
[2020-05-14] MEDS: busPIRone 10 MG TABLET PO SCH ×2 (10:43→20:56)
[2020-05-14] MEDS: TICAGRELOR 90 MG TABLET PO SCH ×2 (10:43→20:58)
[2020-05-14] MEDS: ATORVASTATIN 80 MG TABLET PO SCH (10:44)
[2020-05-14] MEDS: METOPROLOL TARTRATE 50 MG TABLET PO SCH ×2 (10:44→20:57)
[2020-05-14] MEDS: CYANOCOBALAMIN 500 MCG TABLET PO SCH (10:44)
[2020-05-14] MEDS: FUROSEMIDE 20 MG TABLET PO SCH ×2 (10:44→20:58)
[2020-05-14 11:12] LABS: Troponin I 0.081 NG/ML (0.00-0.045)
[2020-05-14] MEDS ORDERED: MAGNESIUM SULF RIDER 2 GM in PREMIX 1 EACH IV PRN ×2 (12:59→13:22)
[2020-05-14] MEDS ORDERED: POTASSIUM CHLORIDE RIDER 10 MEQ in PREMIX 1 EACH IV PRN ×2 (12:59→13:22)
[2020-05-14] MEDS: INSULIN LISPRO 100 UNIT/ML SUBCUT SCH ×5 (13:33→20:59)
[2020-05-14] MEDS: AMITRIPTYLINE 25 MG TABLET PO SCH (20:57)
[2020-05-14] MEDS: DONEPEZIL 5 MG TABLET PO SCH (20:57)
[2020-05-14] MEDS: INSULIN GLARGINE 100 UNIT/ML SUBCUT SCH (21:01)
[2020-05-14] MEDS: amLODIPine 5 MG TABLET PO SCH (22:26)
[2020-05-15] MEDS ORDERED: diphenhydrAMINE CAP 25 MG CAPSULE PO ONE ×2 (00:01→07:00)
[2020-05-15] MEDS ORDERED: DIAZEPAM 5 MG TABLET PO ONE ×2 (00:01→07:00)
[2020-05-15] MEDS: SODIUM CHLORIDE 0.45% 1,000 ML IV SCH ×6 (01:00→23:44)
[2020-05-15 04:17] LABS: Basophils % 0.4 % (0.0-0.8); Eosinophils # 0.6 10*3/uL (0.0-0.87); Eosinophils % 6.6 % (0.00-10.9); Hematocrit 31.7 VOL% (35.7-47.0); Hemoglobin 10.2 GM/DL (12.0-16.0); Immature Granulocytes % 0.2 %; Immature Granulocytes Absolute 0.02 #; Lymphocytes # 1.9 10*3/uL (1.4-4.0); Lymphocytes % 22.7 % (21.3-54.2); Mean Corpuscular HGB Conc 32.2 GM/DL (32-36); Mean Corpuscular Volume 85.7 FL (87-102); Mean Platelet Volume 11.3 FL (9.6-12.0); Monocytes % 9.4 % (1.7-12.7); Neutrophils % 60.7 % (38.7-73.9); Platelet Count 233 T/CUMM (130-400); Red Cell Distribution Width 13.6 % (9.3-17.3); White Blood Count 8.5 T/CUMM (4-12)
[2020-05-15 04:30] LABS: Calcium 8.4 MG/DL (8.5-10.1); Osmolality,Calculated 280.4 MOS/KG (273-304)
[2020-05-15] MEDS: LEVOTHYROXINE 50 MCG TABLET PO SCH (06:01)
[2020-05-15] MEDS ORDERED: LIDOCAINE 1% 20 ML VIAL ONE (06:38)
[2020-05-15] MEDS ORDERED: HEPARIN/NACL 0.9% 2 UNITS/ML 1,000 ML IV ONE (06:38)
[2020-05-15] MEDS: METOPROLOL TARTRATE 50 MG TABLET PO SCH ×3 (06:52→21:25)
[2020-05-15] MEDS ORDERED: MIDAZOLAM 2 MG/2 ML VIAL ONE (07:03)
[2020-05-15] MEDS ORDERED: HYDROmorphone 2 MG/1 ML VIAL ONE (07:03)
[2020-05-15] MEDS ORDERED: BIVALIRUDIN 250 MG VIAL IV ONE (07:39)
[2020-05-15] MEDS ORDERED: TICAGRELOR 90 MG TABLET ONE (08:20)
[2020-05-15] MEDS: INSULIN LISPRO 100 UNIT/ML SUBCUT SCH ×7 (09:52→21:27)
[2020-05-15] MEDS: busPIRone 10 MG TABLET PO SCH ×2 (13:33→21:25)
[2020-05-15] MEDS: DOCUSATE SODIUM 100 MG CAPSULE PO SCH ×2 (13:33→21:25)
[2020-05-15] MEDS: ASPIRIN EC 81 MG TABLET PO SCH (13:33)
[2020-05-15] MEDS: TICAGRELOR 90 MG TABLET PO SCH ×2 (13:33→21:26)
[2020-05-15] MEDS: LORATADINE 10 MG TABLET PO SCH (13:33)
[2020-05-15] MEDS: FUROSEMIDE 20 MG TABLET PO SCH ×2 (13:34→21:24)
[2020-05-15] MEDS: ATORVASTATIN 80 MG TABLET PO SCH (13:34)
[2020-05-15] MEDS: CYANOCOBALAMIN 500 MCG TABLET PO SCH (13:34)
[2020-05-15] MEDS: PANTOPRAZOLE 40 MG TABLET PO SCH (13:34)
[2020-05-15] MEDS: AMITRIPTYLINE 25 MG TABLET PO SCH (21:26)
[2020-05-15] MEDS: DONEPEZIL 5 MG TABLET PO SCH (21:26)
[2020-05-15] MEDS: amLODIPine 5 MG TABLET PO SCH (21:26)
[2020-05-15] MEDS: INSULIN GLARGINE 100 UNIT/ML SUBCUT SCH (21:31)
[2020-05-16] MEDS: SODIUM CHLORIDE 0.45% 1,000 ML IV SCH (04:18)
[2020-05-16 04:36] LABS: Basophils # 0.1 10*3/uL (0.0-0.2); Basophils % 0.5 % (0.0-0.8); Eosinophils # 0.5 10*3/uL (0.0-0.87); Eosinophils % 4.6 % (0.00-10.9); Hematocrit 32.7 VOL% (35.7-47.0); Hemoglobin 10.6 GM/DL (12.0-16.0); Immature Granulocytes % 0.4 %; Immature Granulocytes Absolute 0.04 #; Lymphocytes # 2.3 10*3/uL (1.4-4.0); Lymphocytes % 21.4 % (21.3-54.2); Mean Corpuscular HGB Conc 32.4 GM/DL (32-36); Mean Corpuscular Volume 85.2 FL (87-102); Mean Platelet Volume 11.5 FL (9.6-12.0); Monocytes % 11.7 % (1.7-12.7); Neutrophils % 61.4 % (38.7-73.9); Platelet Count 239 T/CUMM (130-400); Red Blood Count 3.84 MC/CUMM (3.8-5.5); Red Cell Distribution Width 13.5 % (9.3-17.3); White Blood Count 10.5 T/CUMM (4-12)
[2020-05-16 05:02] LABS: Calcium 8.5 MG/DL (8.5-10.1)
[2020-05-16] MEDS: LEVOTHYROXINE 50 MCG TABLET PO SCH (06:11)
[2020-05-16 07:56] VITALS: BP 158/67
[2020-05-16] MEDS: METOPROLOL TARTRATE 50 MG TABLET PO SCH (09:09)
[2020-05-16] MEDS: busPIRone 10 MG TABLET PO SCH (09:09)
[2020-05-16] MEDS: ATORVASTATIN 80 MG TABLET PO SCH (09:09)
[2020-05-16] MEDS: FUROSEMIDE 20 MG TABLET PO SCH (09:09)
[2020-05-16] MEDS: DOCUSATE SODIUM 100 MG CAPSULE PO SCH (09:09)
[2020-05-16] MEDS: PANTOPRAZOLE 40 MG TABLET PO SCH (09:09)
[2020-05-16] MEDS: ASPIRIN EC 81 MG TABLET PO SCH (09:09)
[2020-05-16] MEDS: TICAGRELOR 90 MG TABLET PO SCH (09:09)
[2020-05-16] MEDS: LORATADINE 10 MG TABLET PO SCH (09:09)
[2020-05-16] MEDS: CYANOCOBALAMIN 500 MCG TABLET PO SCH (09:09)
[2020-05-16] MEDS: INSULIN LISPRO 100 UNIT/ML SUBCUT SCH ×2 (09:13)
== END 2020-05-16 10:19 | disposition home health service (06) ==
LOC: N.EDINP 00:19 → N.ED 00:19 → N.EDINP 11:43 → N.TELES 11:50
PROVIDERS: ADMIT Internal Medicine; ATTEND Internal Medicine
PROC: CLCCHCL (ICD-10-PCS; 2020-05-15 07:15)

== ENCOUNTER 2022-07-03 06:39 | Observation (INO) ==
[2022-07-03 07:04] LABS: Basophils # 0.1 10*3/uL (0.0-0.2); Basophils % 0.7 % (0.0-0.8); Eosinophils # 0.8 10*3/uL (0.0-0.87); Eosinophils % 10.2 % (0.00-10.9); Hemoglobin 12.6 GM/DL (12.0-16.0); Immature Granulocytes % 0.4 %; Immature Granulocytes Absolute 0.03 #; Lymphocytes % 25.7 % (21.3-54.2); Mean Corpuscular HGB Conc 31.5 GM/DL (32-36); Mean Corpuscular Volume 85.5 FL (87-102); Mean Platelet Volume 11.3 FL (9.6-12.0); Monocytes # 0.8 10*3/uL (0.11-0.8); Monocytes % 9.8 % (1.7-12.7); Neutrophils % 53.2 % (38.7-73.9); Platelet Count 305 T/CUMM (130-400); Red Blood Count 4.68 MC/CUMM (3.8-5.5); Red Cell Distribution Width 14.1 % (9.3-17.3); White Blood Count 7.7 T/CUMM (4-12)
[2022-07-03 07:43] LABS: Albumin 4.2 G/DL (3.4-5.0); Bilirubin,Total 0.4 MG/DL (0.20-1.00); Osmolality,Calculated 293.7 MOS/KG (273-304); Total Protein 7.5 G/DL (6.4-8.2)
[2022-07-03] MEDS ORDERED: NITROGLYCERIN 2% OINT 1 INCH/GM PACK TOP STA (09:59)
[2022-07-03] MEDS ORDERED: ONDANSETRON 4 MG/2 ML VIAL IV PRN (10:05)
[2022-07-03] MEDS ORDERED: ACETAMINOPHEN 325 MG TABLET PO PRN (10:05)
[2022-07-03] MEDS: ENOXAPARIN 30 MG/0.3 ML SYRINGE SUBCUT SCH (10:35)
[2022-07-03] MEDS: INSULIN LISPRO 100 UNIT/ML SUBCUT SCH ×2 (14:54→16:41)
[2022-07-03] MEDS: busPIRone 10 MG TABLET PO SCH ×2 (16:42→20:20)
[2022-07-03] MEDS: GABAPENTIN 100 MG CAPSULE PO SCH (20:20)
[2022-07-03] MEDS: ATORVASTATIN 80 MG TABLET PO SCH (20:20)
[2022-07-03] MEDS: METOPROLOL TARTRATE 50 MG TABLET PO SCH (20:20)
[2022-07-03] MEDS: FUROSEMIDE 20 MG TABLET PO SCH (20:20)
[2022-07-03] MEDS: TICAGRELOR 90 MG TABLET PO SCH (20:20)
[2022-07-03] MEDS: DONEPEZIL 5 MG TABLET PO SCH (20:20)
[2022-07-03] MEDS: DOCUSATE SODIUM 100 MG CAPSULE PO SCH (20:20)
[2022-07-03] MEDS: amLODIPine 5 MG TABLET PO SCH (20:20)
[2022-07-03] MEDS: LOSARTAN 25 MG TABLET PO SCH (20:20)
[2022-07-03] MEDS: INSULIN GLARGINE 100 UNIT/ML SUBCUT SCH (21:00)
[2022-07-04] MEDS ORDERED: LEVOTHYROXINE 50 MCG TABLET PO SCH (06:30)
[2022-07-04] MEDS ORDERED: LEVOTHYROXINE 25 MCG TABLET PO SCH (06:30)
[2022-07-04] MEDS: ENOXAPARIN 30 MG/0.3 ML SYRINGE SUBCUT SCH (08:20)
[2022-07-04] MEDS: DOCUSATE SODIUM 100 MG CAPSULE PO SCH ×2 (08:21→21:49)
[2022-07-04] MEDS: FUROSEMIDE 20 MG TABLET PO SCH ×2 (08:21→22:03)
[2022-07-04] MEDS: ASPIRIN EC 81 MG TABLET PO SCH (08:21)
[2022-07-04] MEDS: AMITRIPTYLINE 25 MG TABLET PO SCH (08:21)
[2022-07-04] MEDS: busPIRone 10 MG TABLET PO SCH ×3 (08:21→21:48)
[2022-07-04] MEDS: allopurinoL 100 MG TABLET PO SCH (08:22)
[2022-07-04] MEDS: PANTOPRAZOLE 40 MG TABLET PO SCH (08:22)
[2022-07-04] MEDS: TICAGRELOR 90 MG TABLET PO SCH ×2 (08:22→21:49)
[2022-07-04] MEDS ORDERED: NON-FORMULARY MEDICATION (Omeprazole 40 MG capsule,delayed release(DR/EC)) PO SCH (09:00)
[2022-07-04] MEDS: METOPROLOL TARTRATE 50 MG TABLET PO SCH ×3 (09:26→23:36)
[2022-07-04] MEDS: INSULIN LISPRO 100 UNIT/ML SUBCUT SCH ×3 (09:28→18:57)
[2022-07-04] MEDS: DONEPEZIL 5 MG TABLET PO SCH (21:48)
[2022-07-04] MEDS: amLODIPine 5 MG TABLET PO SCH ×2 (21:49→23:37)
[2022-07-04] MEDS: GABAPENTIN 100 MG CAPSULE PO SCH (21:50)
[2022-07-04] MEDS: LOSARTAN 25 MG TABLET PO SCH ×2 (21:52→23:36)
[2022-07-04] MEDS: ATORVASTATIN 80 MG TABLET PO SCH (21:56)
[2022-07-04] MEDS: INSULIN GLARGINE 100 UNIT/ML SUBCUT SCH (23:33)
[2022-07-05 05:44] LABS: Basophils # 0.1 10*3/uL (0.0-0.2); Basophils % 0.9 % (0.0-0.8); Eosinophils # 0.7 10*3/uL (0.0-0.87); Eosinophils % 12.7 % (0.00-10.9); Hematocrit 34.2 VOL% (35.7-47.0); Hemoglobin 10.9 GM/DL (12.0-16.0); Immature Granulocytes % 0.9 %; Immature Granulocytes Absolute 0.05 #; Lymphocytes # 1.4 10*3/uL (1.4-4.0); Mean Corpuscular HGB Conc 31.9 GM/DL (32-36); Mean Corpuscular Volume 85.5 FL (87-102); Monocytes # 0.6 10*3/uL (0.11-0.8); Monocytes % 11.9 % (1.7-12.7); Neutrophils % 46.6 % (38.7-73.9); Platelet Count 207 T/CUMM (130-400); Red Cell Distribution Width 13.6 % (9.3-17.3); White Blood Count 5.3 T/CUMM (4-12)
[2022-07-05 06:13] LABS: Calcium 9.4 MG/DL (8.5-10.1); Osmolality,Calculated 295.7 MOS/KG (273-304); Potassium 4.5 MMOL/L (3.5-5.1)
[2022-07-05 06:46] LABS: Band Neutrophils 1 % (0-10); Eosinophils 12 % (0-10); Lymphocytes 30 % (20-55); Platelet Estimate Adequate; Total Cells Counted 100
[2022-07-05 06:47] LABS: Hypochromia Slight; Microcytosis Slight
[2022-07-05 08:04] VITALS: BP 140/61
[2022-07-05] MEDS: INSULIN LISPRO 100 UNIT/ML SUBCUT SCH (08:37)
[2022-07-05] MEDS ORDERED: GLUCAGON 1 MG VIAL IM PRN (09:21)
[2022-07-05] MEDS ORDERED: DEXTROSE 10% 250 ML BAG IV PRN (09:22)
[2022-07-05] MEDS: PANTOPRAZOLE 40 MG TABLET PO SCH (10:08)
[2022-07-05] MEDS: busPIRone 10 MG TABLET PO SCH (10:08)
[2022-07-05] MEDS: AMITRIPTYLINE 25 MG TABLET PO SCH (10:08)
[2022-07-05] MEDS: ENOXAPARIN 30 MG/0.3 ML SYRINGE SUBCUT SCH (10:08)
[2022-07-05] MEDS: TICAGRELOR 90 MG TABLET PO SCH (10:08)
[2022-07-05] MEDS: ASPIRIN EC 81 MG TABLET PO SCH (10:09)
[2022-07-05] MEDS: DOCUSATE SODIUM 100 MG CAPSULE PO SCH (10:09)
[2022-07-05] MEDS: allopurinoL 100 MG TABLET PO SCH (10:09)
[2022-07-05] MEDS: FUROSEMIDE 20 MG TABLET PO SCH (10:09)
[2022-07-05] MEDS: METOPROLOL TARTRATE 50 MG TABLET PO SCH (10:18)
== END 2022-07-05 12:55 | disposition home or self-care (01) ==
LOC: N.EDINP 06:39 → N.ED 06:39 → N.2W 13:05
PROVIDERS: ADMIT Internal Medicine; ATTEND Internal Medicine

== ENCOUNTER 2022-10-19 00:26 | Observation (INO) ==
[2022-10-19 01:54] LABS: Basophils # 0.1 10*3/uL (0.0-0.2); Basophils % 0.8 % (0.0-0.8); Eosinophils # 0.5 10*3/uL (0.0-0.87); Hematocrit 36.1 VOL% (35.7-47.0); Hemoglobin 11.5 GM/DL (12.0-16.0); Immature Granulocytes % 0.4 %; Immature Granulocytes Absolute 0.04 #; Lymphocytes # 1.4 10*3/uL (1.4-4.0); Lymphocytes % 14.5 % (21.3-54.2); Mean Corpuscular HGB Conc 31.9 GM/DL (32-36); Mean Corpuscular Volume 87.6 FL (87-102); Mean Platelet Volume 11.9 FL (9.6-12.0); Monocytes # 0.9 10*3/uL (0.11-0.8); Monocytes % 8.7 % (1.7-12.7); Neutrophils % 70.6 % (38.7-73.9); Platelet Count 248 T/CUMM (130-400); Red Blood Count 4.12 MC/CUMM (3.8-5.5); Red Cell Distribution Width 14.9 % (9.3-17.3); White Blood Count 9.8 T/CUMM (4-12)
[2022-10-19 01:58] LABS: Hyaline Casts,Urine 23 /LPF (0-3); Mucus,Urine Occasional /LPF (Occasional); Squamous Epithelial Cell,Urine Occasional /HPF (0-10)
[2022-10-19 02:00] LABS: Bilirubin,Urine Negative (Negative); Blood, Urine Negative (Negative); Glucose,Urine (UA) >=1000 mg/dL (Negative); Ketones,Urine Negative (Negative); Nitrite,Urine Negative (Negative); Protein,Urine Negative (Negative); Urine Appearance Clear (Clear); Urine Color Yellow (Yellow); Urine Urobilinogen 0.2 eU/dL (<2.0); Urine pH 5.5 (4.5-8.0)
[2022-10-19 02:04] LABS: Alanine Aminotransferase 24 U/L (13-56); Albumin 3.8 G/DL (3.4-5.0); Alkaline Phosphatase 202 U/L (45-117); Aspartate Amino Transferase 17 U/L (0-37); Bilirubin,Total < 0.39 MG/DL (0.20-1.00); Blood Urea Nitrogen 32 MG/DL (7-18); Calcium 9.8 MG/DL (8.5-10.1); Carbon Dioxide 28 MMOL/L (21-32); Chloride 99 MMOL/L (98-107); Glucose 377 MG/DL (74-106); Osmolality,Calculated 289.2 MOS/KG (273-304); Potassium 4.9 MMOL/L (3.5-5.1); Sodium 134 MMOL/L (136-145); Total Protein 7.5 G/DL (6.4-8.2)
[2022-10-19 02:22] LABS: Barbiturates Screen,Urine Negative (Negative); Benzodiazepines Screen,Urine Negative (Negative); Cannabinoid Screen,Urine Negative (Negative); Opiate Screen,Urine Negative (Negative); Phencyclidine Screen,Urine Negative (Negative)
[2022-10-19] MEDS ORDERED: SODIUM CHLORIDE 0.9% 500 ML IV STA (02:24)
[2022-10-19] MEDS ORDERED: INSULIN REGULAR 100 UNIT/ML SUBCUT STA (02:24)
[2022-10-19 02:29] LABS: Free T4 (Free Thyroxine) 1.25 NG/DL (0.76-1.46)
[2022-10-19 02:31] LABS: Prolactin 7.9 ng/mL (2.8-29.2)
[2022-10-19] MEDS ORDERED: GLUCAGON 1 MG VIAL IM PRN (03:47)
[2022-10-19] MEDS ORDERED: MORPHINE 2 MG/1 ML SYRINGE IV PRN (03:47)
[2022-10-19] MEDS ORDERED: ONDANSETRON 4 MG/2 ML VIAL IV PRN (03:47)
[2022-10-19] MEDS ORDERED: ACETAMINOPHEN 325 MG TABLET PO PRN (03:47)
[2022-10-19] MEDS ORDERED: FLUTICASONE 50 MCG NASAL SPRAY 16 GM BOTTLE BOTH NARES PRN (03:47)
[2022-10-19] MEDS ORDERED: DEXTROSE 10% 250 ML BAG IV PRN (03:52)
[2022-10-19] MEDS: SODIUM CHLORIDE 0.9% 1,000 ML IV SCH ×2 (04:36→16:21)
[2022-10-19] MEDS: INSULIN REGULAR 100 UNIT/ML SUBCUT SCH ×3 (06:00→17:16)
[2022-10-19 06:41] LABS: Basophils # 0.1 10*3/uL (0.0-0.2); Basophils % 0.9 % (0.0-0.8); Eosinophils # 0.4 10*3/uL (0.0-0.87); Eosinophils % 5.8 % (0.00-10.9); Hematocrit 32.1 VOL% (35.7-47.0); Hemoglobin 10.3 GM/DL (12.0-16.0); Immature Granulocytes % 0.1 %; Immature Granulocytes Absolute 0.01 #; Lymphocytes # 1.6 10*3/uL (1.4-4.0); Lymphocytes % 23.3 % (21.3-54.2); Mean Corpuscular HGB Conc 32.1 GM/DL (32-36); Mean Platelet Volume 11.3 FL (9.6-12.0); Monocytes # 0.8 10*3/uL (0.11-0.8); Monocytes % 10.8 % (1.7-12.7); Neutrophils % 59.1 % (38.7-73.9); Platelet Count 209 T/CUMM (130-400); Red Blood Count 3.69 MC/CUMM (3.8-5.5); White Blood Count 6.9 T/CUMM (4-12)
[2022-10-19] MEDS: INSULIN LISPRO 100 UNIT/ML SUBCUT SCH ×3 (08:06→16:04)
[2022-10-19 08:08] LABS: Alanine Aminotransferase 21 U/L (13-56); Albumin 3.2 G/DL (3.4-5.0); Alkaline Phosphatase 177 U/L (45-117); Aspartate Amino Transferase 13 U/L (0-37); Bilirubin,Total < 0.39 MG/DL (0.20-1.00); Blood Urea Nitrogen 29 MG/DL (7-18); Calcium 9.4 MG/DL (8.5-10.1); Carbon Dioxide 29 MMOL/L (21-32); Chloride 108 MMOL/L (98-107); Glucose 148 MG/DL (74-106); Osmolality,Calculated 291.1 MOS/KG (273-304); Potassium 3.9 MMOL/L (3.5-5.1); Sodium 142 MMOL/L (136-145); Total Protein 6.3 G/DL (6.4-8.2)
[2022-10-19 08:22] LABS: Cholesterol 135 MG/DL (50-200); HDL Cholesterol 44 MG/DL (40-60); Risk Ratio 3.07; Triglycerides 140 MG/DL (2-150)
[2022-10-19] MEDS ORDERED: NON-FORMULARY MEDICATION (Omeprazole 40 MG capsule,delayed release(DR/EC)) PO SCH (09:00)
[2022-10-19] MEDS: LEVOTHYROXINE 75 MCG TABLET PO SCH (09:39)
[2022-10-19] MEDS: busPIRone 10 MG TABLET PO SCH ×3 (09:40→21:28)
[2022-10-19] MEDS: TICAGRELOR 90 MG TABLET PO SCH ×2 (09:40→21:29)
[2022-10-19] MEDS: ASPIRIN EC 81 MG TABLET PO SCH (09:40)
[2022-10-19] MEDS: METOPROLOL TARTRATE 50 MG TABLET PO SCH ×2 (09:41→21:29)
[2022-10-19] MEDS: ENOXAPARIN 40 MG/0.4 ML SYRINGE SUBCUT SCH (09:41)
[2022-10-19] MEDS: FUROSEMIDE 20 MG TABLET PO SCH ×2 (09:41→21:29)
[2022-10-19] MEDS: DOCUSATE SODIUM 100 MG CAPSULE PO SCH ×2 (09:41→21:29)
[2022-10-19] MEDS: CYANOCOBALAMIN 500 MCG TABLET PO SCH (09:42)
[2022-10-19] MEDS: allopurinoL 100 MG TABLET PO SCH (09:42)
[2022-10-19] MEDS: PANTOPRAZOLE 40 MG TABLET PO SCH (09:42)
[2022-10-19] MEDS: QUEtiapine 25 MG TABLET PO SCH ×2 (11:00→21:29)
[2022-10-19] MEDS: LORATADINE 10 MG TABLET PO SCH (13:38)
[2022-10-19] MEDS: AMITRIPTYLINE 25 MG TABLET PO SCH (13:38)
[2022-10-19] MEDS ORDERED: LOSARTAN 25 MG TABLET PO SCH (21:00)
[2022-10-19] MEDS ORDERED: ATORVASTATIN 80 MG TABLET PO SCH (21:00)
[2022-10-19] MEDS ORDERED: DONEPEZIL 5 MG TABLET PO SCH (21:00)
[2022-10-19] MEDS ORDERED: amLODIPine 5 MG TABLET PO SCH (21:00)
[2022-10-19] MEDS ORDERED: INSULIN GLARGINE 100 UNIT/ML SUBCUT SCH (21:00)
[2022-10-19] MEDS ORDERED: GABAPENTIN 100 MG CAPSULE PO SCH (21:00)
[2022-10-20] MEDS: INSULIN REGULAR 100 UNIT/ML SUBCUT SCH ×2 (00:36→06:25)
[2022-10-20] MEDS: SODIUM CHLORIDE 0.9% 1,000 ML IV SCH (00:38)
[2022-10-20 06:23] LABS: Basophils # 0.1 10*3/uL (0.0-0.2); Basophils % 0.7 % (0.0-0.8); Eosinophils # 0.7 10*3/uL (0.0-0.87); Eosinophils % 9.5 % (0.00-10.9); Hematocrit 32.5 VOL% (35.7-47.0); Hemoglobin 10.1 GM/DL (12.0-16.0); Immature Granulocytes % 0.4 %; Immature Granulocytes Absolute 0.03 #; Lymphocytes # 1.7 10*3/uL (1.4-4.0); Lymphocytes % 23.7 % (21.3-54.2); Mean Corpuscular HGB Conc 31.1 GM/DL (32-36); Mean Corpuscular Volume 88.1 FL (87-102); Mean Platelet Volume 11.9 FL (9.6-12.0); Monocytes # 0.8 10*3/uL (0.11-0.8); Monocytes % 11.1 % (1.7-12.7); Neutrophils % 54.6 % (38.7-73.9); Platelet Count 202 T/CUMM (130-400); Red Blood Count 3.69 MC/CUMM (3.8-5.5); Red Cell Distribution Width 15.2 % (9.3-17.3); White Blood Count 7.3 T/CUMM (4-12)
[2022-10-20] MEDS: LEVOTHYROXINE 75 MCG TABLET PO SCH (06:39)
[2022-10-20 06:42] LABS: Osmolality,Calculated 286.8 MOS/KG (273-304); Potassium 3.8 MMOL/L (3.5-5.1)
[2022-10-20 07:56] VITALS: BP 150/70
[2022-10-20] MEDS: INSULIN LISPRO 100 UNIT/ML SUBCUT SCH (08:35)
[2022-10-20] MEDS: ASPIRIN EC 81 MG TABLET PO SCH (09:11)
[2022-10-20] MEDS: TICAGRELOR 90 MG TABLET PO SCH (09:11)
[2022-10-20] MEDS: AMITRIPTYLINE 25 MG TABLET PO SCH (09:11)
[2022-10-20] MEDS: ENOXAPARIN 40 MG/0.4 ML SYRINGE SUBCUT SCH (09:11)
[2022-10-20] MEDS: METOPROLOL TARTRATE 50 MG TABLET PO SCH (09:11)
[2022-10-20] MEDS: PANTOPRAZOLE 40 MG TABLET PO SCH (09:11)
[2022-10-20] MEDS: FUROSEMIDE 20 MG TABLET PO SCH (09:12)
[2022-10-20] MEDS: CYANOCOBALAMIN 500 MCG TABLET PO SCH (09:12)
[2022-10-20] MEDS: busPIRone 10 MG TABLET PO SCH (09:12)
[2022-10-20] MEDS: LORATADINE 10 MG TABLET PO SCH (09:12)
[2022-10-20] MEDS: allopurinoL 100 MG TABLET PO SCH (09:12)
== END 2022-10-20 12:00 | disposition home health service (06) ==
LOC: N.EDINP 00:26 → N.ED 00:26 → N.2W 12:13
PROVIDERS: ADMIT Internal Medicine; ATTEND Internal Medicine